=== PATIENT | male | born 1935 | race Caucasian/White ===

== ENCOUNTER 2016-04-11 16:02 | Observation (INO) | payer OTHER, BC ==
[~2016-04-11] VITALS: Ht 175.3 cm; Wt 105.8 kg
[~2016-04-11 16:02] MED LIST: ADALAT CC 30 MG30 MG PO; ASPIRIN EC325 MG PO; ATORVASTATIN CA10 MG PO; BLUE EMU CREAM; Coumadin,Jantoven PO; FERROUS SULFAT325 MG PO; FUROSEMIDE40 MG PO; ICY HOT CREAM35.4 G1 TP; KLOR-CON M2020 MEQ PO; OMEPRAZOLE20 MG PO; PANTOPRAZOLE SO40 MG PO; PRAVACHOL20 MG PO; Protonix PO; TRAMADOL HCL50 MG PO; TYLENOL ARTHRI650 MG PO; TYLENOL EXTRA500 MG PO; TYLENOL REGULA325 MG PO; VAPOR INHALER50 MG BOTH NARES; WARFARIN SODIUM1 MG PO; WARFARIN SODIUM10 MG PO; WARFARIN SODIUM5 MG PO; [UNRECOGNIZED DRUG - OTHER] PO; [UNRECOGNIZED DRUG - OTHER] TP
[2016-04-11 17:17] LABS: HEMATOCRIT 39.2 % (38.0-50.0); MCH 30.3 PG (29.0-34.0); MCHC 32.4 G/DL (30.0-36.0); MCV 93.6 FL (86-99); MEAN PLAT.VOLUME 11.9 uM^3 (9.0-12.4); PLATELET COUNT 158 K/uL (156-360); RBC DIS.WIDTH-CV 15.4 % (11.8-14.6); RBC DIS.WIDTH-SD 50.7 % (39-53); RED BLOOD COUNT 4.19 M/uL (4.00-5.50); WHITE BLOOD COUNT 5.6 K/uL (4.1-10.2)
[2016-04-11 17:40] LABS: CHLORIDE 101 mEq/L (99-109); POTASSIUM 4.3 mEq/L (3.7-5.4); SODIUM 136 mEq/L (136-147)
[2016-04-11 17:42] LABS: GLUCOSE 93 mg/dL (70-99)
[2016-04-11 17:43] LABS: ANION GAP 7 MEQ/L (2-14)
[2016-04-11 17:46] LABS: GFR ESTIMATE (CALCULATED) > 59 mL/min/
[2016-04-11 17:47] LABS: UREA NITROGEN (BUN) 18 mg/dL (9-23)
[2016-04-11 19:04] LABS: INTER. NORMALIZED RATIO 2.6; PROTHROMBIN TIME 27.3 (9.2-11.2); PTT 45.8 (25-32)
[2016-04-11 21:08] LABS: TROP-I INTERPRETATION NEGATIVE; TROPONIN-I 0.04 ng/mL (0.0-0.30)
[2016-04-11] MEDS ORDERED: TYLENOL EXTRA500 MG PO (22:47)
[2016-04-11] MEDS ORDERED: IRON325 M1 PO (22:52)
[2016-04-11] MEDS ORDERED: IRON PO (22:55)
[2016-04-12 03:11] VITALS: BP 167/79
[2016-04-12 03:45] LABS: TROP-I INTERPRETATION NEGATIVE; TROPONIN-I 0.04 ng/mL (0.0-0.30)
[2016-04-12 04:01] LABS: HDL CHOLESTEROL 33 MG/DL (Desirable>=40); LDL CHOLESTEROL 29 mg/dL (Desirable<100); NON-HDL CHOLESTEROL 41 mg/dL (Desirable<160); TOTAL CHOLESTEROL 74 mg/dL (Desirable<200); TRIGLYCERIDES 61 MG/DL (Normal: <150)
[2016-04-12 06:55] LABS: Estimated Average Glucose 114 mg/dL (70-123); HEMOGLOBIN A1c (GLYCOHEMOGLOB) 5.6 % HGB (Below 5.7)
[2016-04-12 08:00] VITALS: BP 152/72
[2016-04-12 11:26] LABS: INTER. NORMALIZED RATIO 2.3; PROTHROMBIN TIME 23.5 (9.2-11.2)
[2016-04-12 11:36] LABS: ANION GAP 8 MEQ/L (2-14); CHLORIDE 97 MEQ/L (99-109); GFR ESTIMATE (CALCULATED) > 59 mL/min/; GLUCOSE 77 mg/dL (70-99); MAGNESIUM 2.2 mg/dl (1.3-2.7); POTASSIUM 4.6 MEQ/L (3.7-5.4); SAMPLE HEMOLYSIS CHECK 0; SAMPLE ICTERIC CHECK 0; SAMPLE LIPEMIA CHECK 0; SODIUM 138 MEQ/L (136-147); UREA NITROGEN (BUN) 18 mg/dL (9-23)
[2016-04-12 11:38] LABS: TROP-I INTERPRETATION NEGATIVE; TROPONIN-I 0.05 ng/mL (0.0-0.30)
[2016-04-12 12:13] VITALS: BP 150/74
[2016-04-12] MEDS ORDERED: FUROSEMIDE80 MG PO (14:33)
[2016-04-12] MEDS ORDERED: PRAVASTATIN SOD40 MG PO (14:33)
== END 2016-04-12 15:47 | disposition home or self-care (01) ==
LOC: EME 16:02 → EDOF 23:22 → 5WEST 23:22
PROVIDERS: Physician Assistant Medical
DX: J96.01 Acute respiratory failure with hypoxia (principal); I50.9 Heart failure, unspecified; I48.2 Chronic atrial fibrillation; R00.1 Bradycardia, unspecified; I45.10 Unspecified right bundle-branch block; I10 Essential (primary) hypertension; E78.5 Hyperlipidemia, unspecified; I35.0 Nonrheumatic aortic (valve) stenosis; Z95.2 Presence of prosthetic heart valve; E66.9 Obesity, unspecified; M79.89 Other specified soft tissue disorders; I25.10 Atherosclerotic heart disease of native coronary artery without angina pectoris; Z95.828 Presence of other vascular implants and grafts; I71.2 Thoracic aortic aneurysm, without rupture; Z87.19 Personal history of other diseases of the digestive system; Z87.891 Personal history of nicotine dependence; Z79.01 Long term (current) use of anticoagulants; Z82.3 Family history of stroke
CPT/HCPCS: 71020; 71250; 80048; 80061; 83036; 83735; 83880; 84484; 85027; 85610; 85730; 93005; 93306; 93970; 99281; 99285; G0378; J1940

== ENCOUNTER → 2016-08-16 | Outpatient (CLI) | payer OTHER, BC ==
[~2016-08-16] MED LIST changes: +FUROSEMIDE80 MG PO; +IRON PO; +IRON325 M1 PO; +PRAVASTATIN SOD40 MG PO
== END | disposition home or self-care (01) ==
DX: R26.2 Difficulty in walking, not elsewhere classified (principal); M25.562 Pain in left knee; M25.662 Stiffness of left knee, not elsewhere classified; M62.81 Muscle weakness (generalized)
CPT/HCPCS: 97110 GP; 97150 GO; 97161 GP; 97165 GO; G8978 GP; G8979 GP; G8980 GP; G8987 GO; G8988 GO; G8989 GO

== ENCOUNTER 2016-09-06 05:06 | Inpatient (IN) | payer OTHER, BC ==
[~2016-09-06] VITALS: Ht 175.3 cm; Wt 107.7 kg
[2016-09-06 06:09] VITALS: BP 133/61
[2016-09-06 07:37] LABS: INTER. NORMALIZED RATIO 1.3; PROTHROMBIN TIME 13.7 (9.2-11.2)
[2016-09-06 10:42] LABS: HEMATOCRIT 38.3 % (38.0-50.0); MCH 30.9 PG (29.0-34.0); MCHC 32.4 G/DL (30.0-36.0); MCV 95.5 FL (86-99); MEAN PLAT.VOLUME 12.9 uM^3 (9.0-12.4); PLATELET COUNT 153 K/uL (156-360); RBC DIS.WIDTH-CV 14.3 % (11.8-14.6); RBC DIS.WIDTH-SD 50.1 % (39-53); RED BLOOD COUNT 4.01 M/uL (4.00-5.50); WHITE BLOOD COUNT 5.8 K/uL (4.1-10.2)
[2016-09-06 11:48] VITALS: BP 130/64
[2016-09-06 15:48] VITALS: BP 117/79
[2016-09-06 20:07] VITALS: BP 127/69
[2016-09-07 00:30] VITALS: BP 165/79
[2016-09-07 04:13] VITALS: BP 141/76
[2016-09-07 06:42] LABS: HEMATOCRIT 39.3 % (38.0-50.0); MCV 96.8 FL (86-99)
[2016-09-07 06:54] LABS: INTER. NORMALIZED RATIO 1.3
[2016-09-07 07:03] LABS: ANION GAP 9 MEQ/L (2-14); CHLORIDE 97 MEQ/L (99-109); GFR ESTIMATE (CALCULATED) > 59 mL/min/; GLUCOSE 97 mg/dL (70-99); POTASSIUM 4.5 MEQ/L (3.7-5.4); SAMPLE HEMOLYSIS CHECK 0; SAMPLE ICTERIC CHECK 0; SAMPLE LIPEMIA CHECK 0; SODIUM 133 MEQ/L (136-147); UREA NITROGEN (BUN) 11 mg/dL (9-23)
[2016-09-07 08:00] VITALS: BP 129/61
[2016-09-07] MEDS ORDERED: LIPITOR10 MG PO (08:04)
[2016-09-07 12:27] VITALS: BP 131/71
[2016-09-07 15:31] VITALS: BP 161/71
[2016-09-07 15:36] LABS: BICARBONATE 29.2 mEq/L (22-26); CARBOXY HGB 2.9 % (0-5); COMMENTS - BLOOD GASES A+C+; DEVICE NC; O2 FLOW 3 L/MIN; PCO2 45 mm Hg (35-45); PO2 77 mm Hg (80-100); SITE RR; TOTAL RESP RATE 20 resp/min; pH 7.42 (7.35-7.45)
[2016-09-07 15:43] LABS: POINT-OF-CARE METER ID UU13113712
[2016-09-07 20:03] VITALS: BP 110/58
[2016-09-08] VITALS (7 sets, daily range): BP systolic 104–133; BP diastolic 52–71
[2016-09-08 05:53] LABS: EOSINOPHIL (%) 0.4 % (0-5); EOSINOPHIL COUNT 0.1 K/uL (0-0.3); HEMATOCRIT 36.1 % (38.0-50.0); IMMATURE GRANULOCYTE COUNT 0.1 K/uL; INSTRUMENT ABS NEUTROPHIL CT 9.7 K/uL; LYMPHOCYTE COUNT 0.6 K/uL (1.0-2.8); MCH 30.6 PG (29.0-34.0); MCHC 32.7 G/DL (30.0-36.0); MCV 93.8 FL (86-99); MEAN PLAT.VOLUME 12.3 uM^3 (9.0-12.4); MONOCYTE (%) 15.1 % (3-12); MONOCYTE COUNT 1.9 K/uL (0-0.8); NEUTROPHIL COUNT 9.7 K/uL (1.8-6.4); PLATELET COUNT 148 K/uL (156-360); RBC DIS.WIDTH-CV 14.2 % (11.8-14.6); RBC DIS.WIDTH-SD 48.6 % (39-53); RED BLOOD COUNT 3.85 M/uL (4.00-5.50); WHITE BLOOD COUNT 12.4 K/uL (4.1-10.2)
[2016-09-08 06:20] LABS: INTER. NORMALIZED RATIO 1.6; PROTHROMBIN TIME 16.5 (9.2-11.2)
[2016-09-08 06:49] LABS: ALKALINE PHOSPHATASE 123 IU/L (3-129); ANION GAP 6 MEQ/L (2-14); CHLORIDE 95 MEQ/L (99-109); GFR ESTIMATE (CALCULATED) > 59 mL/min/; GLUCOSE 100 mg/dL (70-99); POTASSIUM 4.4 MEQ/L (3.7-5.4); SAMPLE HEMOLYSIS CHECK 0; SAMPLE ICTERIC CHECK 0; SAMPLE LIPEMIA CHECK 0; SODIUM 130 MEQ/L (136-147); TOTAL BILIRUBIN 1.2 MG/DL (0.0-1.0); UREA NITROGEN (BUN) 14 mg/dL (9-23)
[2016-09-08] MEDS ORDERED: DOCUSATE SODIU100 MG PO (08:41)
[2016-09-08] MEDS ORDERED: ENDOCET 5-3251 EACH PO (08:41)
[2016-09-08 09:28] LABS: ADD MIUA? YES; BILIRUBIN NEGATIVE; BLOOD SMALL; COLOR YELLOW ((YELLOW)); GLUCOSE (STRIP) NEGATIVE; KETONES NEGATIVE; LEUKOCYTES NEGATIVE; NITRITE NEGATIVE; PROTEIN (STRIP) NEGATIVE; SPECIFIC GRAVITY 1.018 (1.000-1.030); UROBILINOGEN 0.2 MG/DL (0.2-1.0)
[2016-09-08 09:58] LABS: BACTERIA NONE SEEN /HPF; EPITHELIAL CELLS RARE /HPF; MUCUS TRACE /LPF; RED BLOOD CELLS 15-20 /HPF (0-5); UCUL ADDED? NO; WHITE BLOOD CELLS 0-5 /HPF (0-5)
[2016-09-09 07:10] LABS: BASOPHIL COUNT 0.1 K/uL (0-0.1); EOSINOPHIL (%) 0.4 % (0-5); EOSINOPHIL COUNT 0.1 K/uL (0-0.3); HEMATOCRIT 36.9 % (38.0-50.0); IMMATURE GRANULOCYTE (%) 0.9 % (0.0-0.7); IMMATURE GRANULOCYTE COUNT 0.1 K/uL; LYMPHOCYTE COUNT 0.8 K/uL (1.0-2.8); MCH 30.8 PG (29.0-34.0); MCHC 33.1 G/DL (30.0-36.0); MCV 93.2 FL (86-99); MEAN PLAT.VOLUME 12.6 uM^3 (9.0-12.4); MONOCYTE (%) 13.8 % (3-12); MONOCYTE COUNT 2.1 K/uL (0-0.8); NEUTROPHIL (%) 79.6 % (45-76); PLATELET COUNT 172 K/uL (156-360); RBC DIS.WIDTH-SD 48.3 % (39-53); RED BLOOD COUNT 3.96 M/uL (4.00-5.50); WHITE BLOOD COUNT 15.1 K/uL (4.1-10.2)
[2016-09-09 07:17] LABS: INTER. NORMALIZED RATIO 1.7; PROTHROMBIN TIME 17.6 (9.2-11.2)
[2016-09-09 08:06] LABS: ALKALINE PHOSPHATASE 139 IU/L (3-129); ANION GAP 7 MEQ/L (2-14); CHLORIDE 96 MEQ/L (99-109); GFR ESTIMATE (CALCULATED) > 59 mL/min/; GLUCOSE 107 mg/dL (70-99); POTASSIUM 4.6 MEQ/L (3.7-5.4); SAMPLE HEMOLYSIS CHECK 0; SAMPLE ICTERIC CHECK 0; SAMPLE LIPEMIA CHECK 0; SODIUM 132 MEQ/L (136-147); TOTAL BILIRUBIN 1.3 MG/DL (0.0-1.0); UREA NITROGEN (BUN) 22 mg/dL (9-23)
[2016-09-09 08:10] VITALS: BP 117/61
[2016-09-09] MEDS ORDERED: WARFARIN SODIUM5 MG PO (08:27)
[2016-09-09 17:44] VITALS: BP 108/59
== END 2016-09-09 19:42 | disposition home or self-care (01) | DRG 469 ==
LOC: 2SOUTH 05:06 → 3EAST 05:06 → 3WEST 05:06 → 2SOUTH 09:48 → 3WEST 11:27 → 2SOUTH 13:34 → 3WEST 09-08 08:49 → 3EAST 09-08 16:52
PROVIDERS: Hospitalist; Orthopaedic Surgery
PROC: 0SRD0J9 Replacement of Left Knee Joint with Synthetic Substitute, Cemented, Open Approach (ICD-10-PCS; principal; 2016-09-06)
DX: M17.12 Unilateral primary osteoarthritis, left knee (principal); J96.01 Acute respiratory failure with hypoxia; I50.32 Chronic diastolic (congestive) heart failure; I11.0 Hypertensive heart disease with heart failure; E66.9 Obesity, unspecified; E78.5 Hyperlipidemia, unspecified; E87.1 Hypo-osmolality and hyponatremia; I25.10 Atherosclerotic heart disease of native coronary artery without angina pectoris; I48.2 Chronic atrial fibrillation; I65.29 Occlusion and stenosis of unspecified carotid artery; K25.9 Gastric ulcer, unspecified as acute or chronic, without hemorrhage or perforation; K59.00 Constipation, unspecified; M21.162 Varus deformity, not elsewhere classified, left knee; R73.03 Prediabetes; T39.395A Adverse effect of other nonsteroidal anti-inflammatory drugs [NSAID], initial encounter; Z68.35 Body mass index [BMI] 35.0-35.9, adult; Z80.9 Family history of malignant neoplasm, unspecified; Z82.49 Family history of ischemic heart disease and other diseases of the circulatory system; Z83.3 Family history of diabetes mellitus; Z87.11 Personal history of peptic ulcer disease; Z87.891 Personal history of nicotine dependence; Z90.49 Acquired absence of other specified parts of digestive tract; Z95.2 Presence of prosthetic heart valve
CPT/HCPCS: 36600; 71010; 73560; 80048; 80048 91; 80053; 81003; 82803; 82948; 84295; 84300; 85014; 85018; 85025; 85027; 85610; 94010; 94640; 94667; 94799; 97530 GO; 97530 GP; 99202; C1713; J0131; J0690; J1170; J1940; J2250; J2405; J3010; J7030; J7050

== ENCOUNTER → 2016-09-16 | Outpatient (CLI) | payer OTHER, BC ==
[~2016-09-16] MED LIST changes: +ACETAMINOPHEN-1 EAC1 PO; +ANCEF,KEFZ2 GM/100 M IV; +COLACE100 MG PO; +DOCUSATE SODIU100 MG PO; +DULCOLAX10 MG PR; +ENDOCET 5-3251 EACH PO; +HYDROCODON-ACE1 EAC9 PO; +LASIX80 MG PO; +LIPITOR10 MG PO; +MIRALAX255 GM PO; +OXYCODONE HCL5 MG PO; +PHILLIPS'400 MG/5 M PO; +PRAVACHOL40 MG PO; +VANCOMYCIN750 MG/151 IV; +WARFARIN SODIUM6 MG PO
== END ==
LOC: PICC 11:00
DX: T84.54XD Infection and inflammatory reaction due to internal left knee prosthesis, subsequent encounter (principal)
CPT/HCPCS: 71010; 76937

== ENCOUNTER 2016-09-23 22:52 | Inpatient (IN) | payer OTHER, BC ==
[~2016-09-23] VITALS: Ht 177.8 cm; Wt 106.0 kg
[~2016-09-23 22:52] MED LIST changes: -ACETAMINOPHEN-1 EAC1 PO; -ANCEF,KEFZ2 GM/100 M IV; -COLACE100 MG PO; -DULCOLAX10 MG PR; -HYDROCODON-ACE1 EAC9 PO; -LASIX80 MG PO; -MIRALAX255 GM PO; -OXYCODONE HCL5 MG PO; -PHILLIPS'400 MG/5 M PO; -PRAVACHOL40 MG PO; -VANCOMYCIN750 MG/151 IV; -WARFARIN SODIUM6 MG PO
[2016-09-24 00:11] LABS: HEMATOCRIT 30.6 % (38.0-50.0); MCH 30.5 PG (29.0-34.0); MCV 92.4 FL (86-99); MEAN PLAT.VOLUME 11.2 uM^3 (9.0-12.4); PLATELET COUNT 268 K/uL (156-360); RBC DIS.WIDTH-SD 50.7 % (39-53); RED BLOOD COUNT 3.31 M/uL (4.00-5.50); WHITE BLOOD COUNT 7.7 K/uL (4.1-10.2)
[2016-09-24 00:20] LABS: CHLORIDE 104 mEq/L (99-109); SODIUM 137 mEq/L (136-147)
[2016-09-24 00:21] LABS: INTER. NORMALIZED RATIO 1.7; PROTHROMBIN TIME 17.9 (9.2-11.2); PTT 41.5 (25-32)
[2016-09-24 00:23] LABS: ANION GAP 7 MEQ/L (2-14)
[2016-09-24 00:25] LABS: GFR ESTIMATE (CALCULATED) > 59 mL/min/
[2016-09-24 00:26] LABS: UREA NITROGEN (BUN) 13 mg/dL (9-23)
[2016-09-24 00:33] LABS: GLUCOSE 132 mg/dL (70-99)
[2016-09-24 00:36] LABS: ERTH.SED.RATE 41 MM/HR (0-20)
[2016-09-24] MEDS ORDERED: WARFARIN SODIUM6 MG PO (01:17)
[2016-09-24] MEDS ORDERED: IRON325 M1 PO (01:17)
[2016-09-24] MEDS ORDERED: LASIX80 MG PO (01:17)
[2016-09-24] MEDS ORDERED: PRAVACHOL40 MG PO (01:18)
[2016-09-24 01:19] LABS: C-REACTIVE PROTEIN 23.7 MG/L (0-10)
[2016-09-24] MEDS ORDERED: VANCOMYCIN750 MG/151 IV (01:19)
[2016-09-24] MEDS ORDERED: TYLENOL EXTRA500 MG PO (01:19)
[2016-09-24] MEDS ORDERED: ANCEF,KEFZ2 GM/100 M IV (01:20)
[2016-09-24] MEDS ORDERED: COLACE100 MG PO (01:20)
[2016-09-24] MEDS ORDERED: PHILLIPS'400 MG/5 M PO (01:21)
[2016-09-24] MEDS ORDERED: MIRALAX255 GM PO (01:21)
[2016-09-24] MEDS ORDERED: DULCOLAX10 MG PR (01:21)
[2016-09-24] MEDS ORDERED: OXYCODONE HCL5 MG PO (01:22)
[2016-09-24 13:51] LABS: INTER. NORMALIZED RATIO 1.7; PROTHROMBIN TIME 17.7 (9.2-11.2); PTT 45.5 (25-32)
[2016-09-24 15:15] VITALS: BP 133/63
[2016-09-25 00:18] VITALS: BP 133/71
[2016-09-25 04:26] LABS: HEMATOCRIT 30.5 % (38.0-50.0); MCH 30.4 PG (29.0-34.0); MCHC 33.1 G/DL (30.0-36.0); MCV 91.9 FL (86-99); MEAN PLAT.VOLUME 11.1 uM^3 (9.0-12.4); PLATELET COUNT 265 K/uL (156-360); RBC DIS.WIDTH-SD 50.6 % (39-53); RED BLOOD COUNT 3.32 M/uL (4.00-5.50); WHITE BLOOD COUNT 7.6 K/uL (4.1-10.2)
[2016-09-25 04:41] LABS: INTER. NORMALIZED RATIO 1.6; PROTHROMBIN TIME 16.3 (9.2-11.2); PTT 77.3 (25-32)
[2016-09-25 04:57] LABS: CHLORIDE 101 mEq/L (99-109); POTASSIUM 3.8 mEq/L (3.7-5.4); SODIUM 137 mEq/L (136-147)
[2016-09-25 04:59] LABS: GLUCOSE 104 mg/dL (70-99)
[2016-09-25 05:00] LABS: ANION GAP 7 MEQ/L (2-14)
[2016-09-25 05:03] LABS: GFR ESTIMATE (CALCULATED) > 59 mL/min/; UREA NITROGEN (BUN) 9 mg/dL (9-23)
[2016-09-25 05:15] VITALS: BP 133/78
[2016-09-25 07:40] VITALS: BP 135/69
[2016-09-25 08:53] LABS: INTER. NORMALIZED RATIO 1.5; PROTHROMBIN TIME 15.4 (9.2-11.2)
[2016-09-25 08:56] LABS: PTT 40.3 (25-32)
[2016-09-25 15:43] LABS: INTER. NORMALIZED RATIO 1.5; PROTHROMBIN TIME 15.5 (9.2-11.2); PTT 37.9 (25-32)
[2016-09-25 16:06] VITALS: BP 127/58
[2016-09-25 19:55] VITALS: BP 99/57
[2016-09-25 22:25] LABS: INTER. NORMALIZED RATIO 1.5; PROTHROMBIN TIME 15.2 (9.2-11.2)
[2016-09-25 22:33] LABS: PTT 69.5 (25-32)
[2016-09-25 23:40] VITALS: BP 106/56
[2016-09-26 04:03] VITALS: BP 117/57
[2016-09-26 07:02] LABS: BASOPHIL COUNT 0.1 K/uL (0-0.1); EOSINOPHIL (%) 2.9 % (0-5); EOSINOPHIL COUNT 0.3 K/uL (0-0.3); HEMATOCRIT 30.3 % (38.0-50.0); IMMATURE GRANULOCYTE (%) 0.4 % (0.0-0.7); INSTRUMENT ABS NEUTROPHIL CT 6.5 K/uL; MCH 30.1 PG (29.0-34.0); MCHC 32.3 G/DL (30.0-36.0); MCV 92.9 FL (86-99); MEAN PLAT.VOLUME 11.3 uM^3 (9.0-12.4); MONOCYTE (%) 13.6 % (3-12); MONOCYTE COUNT 1.2 K/uL (0-0.8); NEUTROPHIL (%) 71.8 % (45-76); NEUTROPHIL COUNT 6.5 K/uL (1.8-6.4); PLATELET COUNT 292 K/uL (156-360); RBC DIS.WIDTH-SD 51.7 % (39-53); RED BLOOD COUNT 3.26 M/uL (4.00-5.50); WHITE BLOOD COUNT 9.1 K/uL (4.1-10.2)
[2016-09-26 07:28] LABS: ANION GAP 9 MEQ/L (2-14); CHLORIDE 99 MEQ/L (99-109); GFR ESTIMATE (CALCULATED) > 59 mL/min/; GLUCOSE 101 mg/dL (70-99); POTASSIUM 4.2 MEQ/L (3.7-5.4); SAMPLE HEMOLYSIS CHECK 0; SAMPLE ICTERIC CHECK 0; SAMPLE LIPEMIA CHECK 0; SODIUM 133 MEQ/L (136-147); UREA NITROGEN (BUN) 11 mg/dL (9-23)
[2016-09-26 07:55] VITALS: BP 122/58
[2016-09-26 12:01] VITALS: BP 115/65
[2016-09-26 14:44] LABS: INTER. NORMALIZED RATIO 1.4; PROTHROMBIN TIME 13.9 (9.2-11.2)
[2016-09-26 16:03] VITALS: BP 122/57
[2016-09-26 19:41] VITALS: BP 107/56
[2016-09-26 23:40] VITALS: BP 119/56
[2016-09-27 04:01] VITALS: BP 106/55
[2016-09-27 06:41] LABS: BASOPHIL COUNT 0.1 K/uL (0-0.1); EOSINOPHIL (%) 0.9 % (0-5); EOSINOPHIL COUNT 0.1 K/uL (0-0.3); HEMATOCRIT 28.2 % (38.0-50.0); IMMATURE GRANULOCYTE (%) 0.6 % (0.0-0.7); IMMATURE GRANULOCYTE COUNT 0.1 K/uL; INSTRUMENT ABS NEUTROPHIL CT 7.8 K/uL; MCH 30.1 PG (29.0-34.0); MCHC 32.3 G/DL (30.0-36.0); MCV 93.4 FL (86-99); MEAN PLAT.VOLUME 11.9 uM^3 (9.0-12.4); MONOCYTE COUNT 1.7 K/uL (0-0.8); NEUTROPHIL (%) 72.4 % (45-76); NEUTROPHIL COUNT 7.8 K/uL (1.8-6.4); PLATELET COUNT 227 K/uL (156-360); RBC DIS.WIDTH-CV 15.4 % (11.8-14.6); RBC DIS.WIDTH-SD 52.4 % (39-53); RED BLOOD COUNT 3.02 M/uL (4.00-5.50); WHITE BLOOD COUNT 10.8 K/uL (4.1-10.2)
[2016-09-27 06:44] LABS: INTER. NORMALIZED RATIO 1.3; PROTHROMBIN TIME 13.8 (9.2-11.2); PTT 50.1 (25-32)
[2016-09-27 07:01] LABS: ANION GAP 9 MEQ/L (2-14); CHLORIDE 99 MEQ/L (99-109); GFR ESTIMATE (CALCULATED) > 59 mL/min/; GLUCOSE 96 mg/dL (70-99); MAGNESIUM 1.8 mg/dl (1.3-2.7); POTASSIUM 4.3 MEQ/L (3.7-5.4); SAMPLE HEMOLYSIS CHECK 0; SAMPLE ICTERIC CHECK 0; SAMPLE LIPEMIA CHECK 0; SODIUM 132 MEQ/L (136-147); UREA NITROGEN (BUN) 12 mg/dL (9-23)
[2016-09-27 08:31] VITALS: BP 132/59
[2016-09-27 12:00] VITALS: BP 106/56
[2016-09-27 15:57] VITALS: BP 106/58
[2016-09-27 19:37] VITALS: BP 115/56
[2016-09-27 23:58] VITALS: BP 103/59
[2016-09-28 03:22] LABS: EOSINOPHIL (%) 3.4 % (0-5); EOSINOPHIL COUNT 0.3 K/uL (0-0.3); HEMATOCRIT 25.8 % (38.0-50.0); IMMATURE GRANULOCYTE (%) 0.8 % (0.0-0.7); IMMATURE GRANULOCYTE COUNT 0.1 K/uL; INSTRUMENT ABS NEUTROPHIL CT 5.7 K/uL; LYMPHOCYTE COUNT 1.1 K/uL (1.0-2.8); MCH 30.3 PG (29.0-34.0); MCHC 33.3 G/DL (30.0-36.0); MCV 90.8 FL (86-99); MEAN PLAT.VOLUME 11.7 uM^3 (9.0-12.4); MONOCYTE (%) 14.8 % (3-12); MONOCYTE COUNT 1.2 K/uL (0-0.8); NEUTROPHIL (%) 67.8 % (45-76); NEUTROPHIL COUNT 5.7 K/uL (1.8-6.4); PLATELET COUNT 244 K/uL (156-360); RBC DIS.WIDTH-CV 15.1 % (11.8-14.6); RBC DIS.WIDTH-SD 50.2 % (39-53); RED BLOOD COUNT 2.84 M/uL (4.00-5.50); WHITE BLOOD COUNT 8.3 K/uL (4.1-10.2)
[2016-09-28 03:30] LABS: CHLORIDE 100 mEq/L (99-109); POTASSIUM 4.1 mEq/L (3.7-5.4); SODIUM 134 mEq/L (136-147)
[2016-09-28 03:31] LABS: MAGNESIUM 1.8 mg/dL (1.3-2.7)
[2016-09-28 03:32] LABS: GLUCOSE 103 mg/dL (70-99)
[2016-09-28 03:34] LABS: ANION GAP 7 MEQ/L (2-14); INTER. NORMALIZED RATIO 1.3; PROTHROMBIN TIME 13.7 (9.2-11.2)
[2016-09-28 03:36] LABS: GFR ESTIMATE (CALCULATED) > 59 mL/min/
[2016-09-28 03:37] LABS: UREA NITROGEN (BUN) 17 mg/dL (9-23)
[2016-09-28 03:51] VITALS: BP 110/60
[2016-09-28 07:26] VITALS: BP 113/64
[2016-09-28 11:05] VITALS: BP 111/59
[2016-09-28 16:08] VITALS: BP 105/58
[2016-09-28 19:40] VITALS: BP 98/57
[2016-09-28 23:55] VITALS: BP 105/65
[2016-09-29 07:21] LABS: INTER. NORMALIZED RATIO 1.4; PROTHROMBIN TIME 14.5 (9.2-11.2)
[2016-09-29 07:38] VITALS: BP 106/55
[2016-09-29 09:12] LABS: HEMATOCRIT 23.6 % (38.0-50.0); MCH 31.2 PG (29.0-34.0); MCHC 33.5 G/DL (30.0-36.0); MCV 93.3 FL (86-99); MEAN PLAT.VOLUME 12.2 uM^3 (9.0-12.4); PLATELET COUNT 268 K/uL (156-360); RBC DIS.WIDTH-CV 15.3 % (11.8-14.6); RBC DIS.WIDTH-SD 52.4 % (39-53); RED BLOOD COUNT 2.53 M/uL (4.00-5.50); WHITE BLOOD COUNT 7.7 K/uL (4.1-10.2)
[2016-09-29 09:32] LABS: ANION GAP 7 MEQ/L (2-14); CHLORIDE 99 MEQ/L (99-109); GFR ESTIMATE (CALCULATED) > 59 mL/min/; GLUCOSE 85 mg/dL (70-99); POTASSIUM 4.4 MEQ/L (3.7-5.4); SAMPLE HEMOLYSIS CHECK 0; SAMPLE ICTERIC CHECK 0; SAMPLE LIPEMIA CHECK 0; SODIUM 132 MEQ/L (136-147); UREA NITROGEN (BUN) 16 mg/dL (9-23)
[2016-09-29 11:47] VITALS: BP 99/58
[2016-09-29 16:38] VITALS: BP 121/71
[2016-09-29 19:41] VITALS: BP 157/66
[2016-09-29 22:05] LABS: ADD MIUA? YES; BILIRUBIN NEGATIVE; BLOOD NEGATIVE; COLOR YELLOW ((YELLOW)); GLUCOSE (STRIP) NEGATIVE; KETONES NEGATIVE; LEUKOCYTES LARGE; NITRITE NEGATIVE; PROTEIN (STRIP) NEGATIVE; SPECIFIC GRAVITY 1.014 (1.000-1.030); UROBILINOGEN 0.2 MG/DL (0.2-1.0)
[2016-09-29 22:10] LABS: BACTERIA NONE SEEN /HPF; EPITHELIAL CELLS RARE /HPF; HYALINE CASTS 0-5 /LPF; MUCUS TRACE /LPF; RED BLOOD CELLS NONE SEEN /HPF (0-5); UCUL ADDED? NO; WHITE BLOOD CELLS 0-5 /HPF (0-5)
[2016-09-29 23:50] VITALS: BP 115/61
[2016-09-30 04:21] VITALS: BP 116/56
[2016-09-30 06:14] LABS: MCH 31.4 PG (29.0-34.0); MCHC 33.8 G/DL (30.0-36.0); PLATELET COUNT 284 K/uL (156-360); RBC DIS.WIDTH-CV 15.4 % (11.8-14.6); RBC DIS.WIDTH-SD 51.9 % (39-53); RED BLOOD COUNT 2.58 M/uL (4.00-5.50); WHITE BLOOD COUNT 6.1 K/uL (4.1-10.2)
[2016-09-30 06:29] LABS: INTER. NORMALIZED RATIO 1.6; PROTHROMBIN TIME 16.5 (9.2-11.2); PTT 46.8 (25-32)
[2016-09-30 08:07] VITALS: BP 110/68
[2016-09-30 10:40] VITALS: BP 109/58
[2016-09-30 15:45] VITALS: BP 118/81
[2016-09-30 19:03] LABS: HEMATOCRIT 25.3 % (38.0-50.0); MCV 93.4 FL (86-99)
[2016-09-30 19:24] VITALS: BP 107/53
[2016-09-30 23:54] VITALS: BP 117/60
[2016-10-01 04:04] VITALS: BP 113/61
[2016-10-01 07:07] LABS: PROTHROMBIN TIME 20.3 (9.2-11.2)
[2016-10-01 08:16] VITALS: BP 121/62
[2016-10-01 09:32] LABS: MCH 31.3 PG (29.0-34.0); MCHC 33.2 G/DL (30.0-36.0); MCV 94.3 FL (86-99); MEAN PLAT.VOLUME 11.9 uM^3 (9.0-12.4); PLATELET COUNT 273 K/uL (156-360); RBC DIS.WIDTH-CV 15.5 % (11.8-14.6); RED BLOOD COUNT 2.65 M/uL (4.00-5.50)
[2016-10-01 10:04] LABS: ANION GAP 8 MEQ/L (2-14); CHLORIDE 99 MEQ/L (99-109); GFR ESTIMATE (CALCULATED) > 59 mL/min/; GLUCOSE 125 mg/dL (70-99); POTASSIUM 4.1 MEQ/L (3.7-5.4); SAMPLE HEMOLYSIS CHECK 0; SAMPLE ICTERIC CHECK 0; SAMPLE LIPEMIA CHECK 0; SODIUM 134 MEQ/L (136-147); UREA NITROGEN (BUN) 11 mg/dL (9-23)
[2016-10-01 11:56] VITALS: BP 117/65
[2016-10-01 15:49] LABS: PROTHROMBIN TIME 20.8 (9.2-11.2)
[2016-10-01 15:54] LABS: PTT 72.7 (25-32)
[2016-10-01 16:17] VITALS: BP 107/52
[2016-10-01 19:54] VITALS: BP 146/67
[2016-10-01 23:31] VITALS: BP 110/70
[2016-10-02 06:50] LABS: INTER. NORMALIZED RATIO 2.1; PROTHROMBIN TIME 22.1 (9.2-11.2)
[2016-10-02 07:39] VITALS: BP 119/59
[2016-10-02 11:19] LABS: MCH 30.3 PG (29.0-34.0); MCHC 31.9 G/DL (30.0-36.0); MCV 95.1 FL (86-99); PLATELET COUNT 316 K/uL (156-360); RBC DIS.WIDTH-CV 15.7 % (11.8-14.6); RBC DIS.WIDTH-SD 55.2 % (39-53); RED BLOOD COUNT 2.84 M/uL (4.00-5.50); WHITE BLOOD COUNT 6.4 K/uL (4.1-10.2)
[2016-10-02 11:41] VITALS: BP 117/58
[2016-10-02 12:05] LABS: ANION GAP 7 MEQ/L (2-14); CHLORIDE 100 MEQ/L (99-109); GFR ESTIMATE (CALCULATED) > 59 mL/min/; GLUCOSE 103 mg/dL (70-99); POTASSIUM 4.6 MEQ/L (3.7-5.4); SAMPLE HEMOLYSIS CHECK 0; SAMPLE ICTERIC CHECK 0; SAMPLE LIPEMIA CHECK 0; SODIUM 133 MEQ/L (136-147); UREA NITROGEN (BUN) 12 mg/dL (9-23)
[2016-10-02 15:51] VITALS: BP 118/59
[2016-10-02 17:52] LABS: HEMATOCRIT 26.3 % (38.0-50.0); MCV 94.3 FL (86-99)
[2016-10-02 23:47] VITALS: BP 112/63
[2016-10-03 06:20] LABS: HEMATOCRIT 26.3 % (38.0-50.0); MCH 31.1 PG (29.0-34.0); MCHC 33.1 G/DL (30.0-36.0); MCV 93.9 FL (86-99); MEAN PLAT.VOLUME 11.2 uM^3 (9.0-12.4); PLATELET COUNT 329 K/uL (156-360); RBC DIS.WIDTH-CV 15.9 % (11.8-14.6); RBC DIS.WIDTH-SD 54.4 % (39-53)
[2016-10-03 06:54] LABS: INTER. NORMALIZED RATIO 2.4; PROTHROMBIN TIME 24.9 (9.2-11.2)
[2016-10-03 07:44] VITALS: BP 122/63
[2016-10-03 08:25] LABS: ANION GAP 10 MEQ/L (2-14); CHLORIDE 99 MEQ/L (99-109); GFR ESTIMATE (CALCULATED) > 59 mL/min/; GLUCOSE 97 mg/dL (70-99); POTASSIUM 4.5 MEQ/L (3.7-5.4); SAMPLE HEMOLYSIS CHECK 0; SAMPLE ICTERIC CHECK 0; SAMPLE LIPEMIA CHECK 0; SODIUM 135 MEQ/L (136-147); UREA NITROGEN (BUN) 12 mg/dL (9-23)
[2016-10-03 10:22] LABS: POC NON-PRINT COM 1 ND
[2016-10-03 15:46] VITALS: BP 145/91
[2016-10-03 17:21] LABS: INTER. NORMALIZED RATIO 2.2; PROTHROMBIN TIME 23.3 (9.2-11.2)
[2016-10-03 23:52] VITALS: BP 122/57
[2016-10-04 07:29] LABS: INTER. NORMALIZED RATIO 2.4; PROTHROMBIN TIME 24.8 (9.2-11.2)
[2016-10-04 07:55] VITALS: BP 134/60
[2016-10-04] MEDS ORDERED: HYDROCODON-ACE1 EAC9 PO (13:02)
[2016-10-04] MEDS ORDERED: ACETAMINOPHEN-1 EAC1 PO (13:02)
== END 2016-10-04 18:09 | disposition home or self-care (01) | DRG 486 ==
LOC: EME 22:52 → 3EAST 09-24 03:24 → EDOF 09-24 03:24 → 3EAST 09-24 13:52
PROVIDERS: Emergency Medicine; Hospitalist; Internal Medicine; Nurse Practitioner Family; Orthopaedic Surgery; Physician Assistant
DX: T84.54XA Infection and inflammatory reaction due to internal left knee prosthesis, initial encounter (principal); L03.116 Cellulitis of left lower limb; T81.30XA Disruption of wound, unspecified, initial encounter; M96.840 Postprocedural hematoma of a musculoskeletal structure following a musculoskeletal system procedure; Y83.1 Surgical operation with implant of artificial internal device as the cause of abnormal reaction of the patient, or of later complication, without mention of misadventure at the time of the procedure; D62 Acute posthemorrhagic anemia; I11.0 Hypertensive heart disease with heart failure; I50.9 Heart failure, unspecified; E11.9 Type 2 diabetes mellitus without complications; E78.5 Hyperlipidemia, unspecified; G43.909 Migraine, unspecified, not intractable, without status migrainosus; I25.10 Atherosclerotic heart disease of native coronary artery without angina pectoris; I48.91 Unspecified atrial fibrillation; M17.12 Unilateral primary osteoarthritis, left knee; R79.1 Abnormal coagulation profile; E66.9 Obesity, unspecified; Z68.33 Body mass index [BMI] 33.0-33.9, adult; Z82.49 Family history of ischemic heart disease and other diseases of the circulatory system; Z87.11 Personal history of peptic ulcer disease; Z95.2 Presence of prosthetic heart valve; Z79.01 Long term (current) use of anticoagulants
CPT/HCPCS: 36600; 71010; 76937; 80048; 81003; 82272; 82803; 83605; 83735; 84100; 85014; 85018; 85025; 85027; 85610; 85651; 85730; 86140; 86900; 86901; 87040; 94799; 97530 GO; 97530 GP; 99281; 99285; C1769; C1776; J0690; J0878; J1170; J2020; J2250; J3010; J7030; J7050; S0028

== ENCOUNTER → 2016-10-18 | Outpatient (CLI) | payer OTHER, BC ==
[~2016-10-18] MED LIST changes: +ACETAMINOPHEN-1 EAC1 PO; +ANCEF,KEFZ2 GM/100 M IV; +COLACE100 MG PO; +DULCOLAX10 MG PR; +HYDROCODON-ACE1 EAC9 PO; +LASIX80 MG PO; +MIRALAX255 GM PO; +OXYCODONE HCL5 MG PO; +PHILLIPS'400 MG/5 M PO; +PRAVACHOL40 MG PO; +VANCOMYCIN750 MG/151 IV; +WARFARIN SODIUM6 MG PO
== END ==
LOC: RAD 09:30
DX: M25.462 Effusion, left knee (principal); M17.12 Unilateral primary osteoarthritis, left knee
CPT/HCPCS: 73700